=== PATIENT | female | born 1970 | race Caucasian/White ===

== ENCOUNTER 2017-04-29 20:10 | Emergency (ER) | payer MEDICAID, OTHER ==
[~2017-04-29] VITALS: Ht 157.5 cm; Wt 45.5 kg
[~2017-04-29 20:10] MED LIST: CEPH-443 PO; IBUP-1542 PO; IBUP400T22 PO
[2017-04-29 21:08] VITALS: Ht 157.5 cm; Wt 45.5 kg
--- NOTE | 2017-04-29 21:18 | ERD ---
ER Documentation Chief Complaint Date/Time DATE: 04/29/17 TIME: 21:15 Chief Complaint PT WITH C/O "I WAS ON MY WAY TO [facility] AND I PASSED OUT. I HAD A SEIZURE" HPI Patient is a 47-year-old female who presents with epileptic seizure while walking home from [facility]. She states that she awoke on the ground surrounded by paramedics. She states that she hit the back of her head on the ground. She denies headache, states that she has only mild pain to the right occipital scalp. She denies vomiting. She denies tongue laceration or incontinence. Patient has a long history of epilepsy and takes phenobarbital and Keppra. She states that she is compliant with her medication. She denies focal weakness, numbness, vertigo, confusion. She denies neck pain. The patient states that her last seizure was 2 weeks ago. She states that her seizures frequently occur when she is having increased stress. ROS All systems reviewed and are negative except as per history of present illness. Medications Home Meds Active Scripts Phenobarbital* (Phenobarbital*) 100 Mg Tab, 97.2 MG PO BID, #60 TAB Prov:ALLY COURTNEY MD 04/29/17 Levetiracetam* (Keppra*) 500 Mg Tablet, 500 MG PO BID, #60 TAB Prov:ALLY COURTNEY MD 04/29/17 Ibuprofen* (Ibuprofen*) 600 Mg Tablet, 600 MG PO Q6H Y for PAIN, #20 TAB Prov:TAM LANDERS MD 09/24/16 Reported Medications Phenobarbital* (Phenobarbital*) Unknown Strength Tablet, 97.2 MG PO BID, TAB 04/29/17 Levetiracetam* (Levetiracetam*) 500 Mg/5 Ml Solution, 500 MG PO BID, ML 04/29/17 Discontinued Scripts Ibuprofen* (Motrin*) 400 Mg Tab, 400 MG PO Q6, #30 TAB Prov:MIKE ALEXANDER PA-C 05/04/16 Cephalexin* (Keflex*) 500 Mg Capsule, 500 MG PO QID for 7 Days, CAP Prov:MIKE ALEXANDER PA-C 05/04/16 Allergies Allergies: Coded Allergies: Penicillins (Unverified Allergy, Intermediate, RASH, 04/29/17) PMhx/Soc Past medical history: Epilepsy Past surgical history: Denies Social history: Denies tobacco, alcohol or illicit drugs. History of Surgery: No Anesthesia Reaction: No Hx Neurological Disorder: Yes (SZ) Hx Respiratory Disorders: No Hx Cardiac Disorders: No Hx Psychiatric Problems: No Hx Miscellaneous Medical Probl: No Hx Alcohol Use: No Hx Substance Use: No Hx Tobacco Use: No FmHx Family History: No coronary disease, No diabetes Physical Exam Vitals Vital Signs Date Time Temp Pulse Resp B/P Pulse Ox O2 Delivery O2 Flow Rate FiO2 04/29/17 23:22 51 16 106/72 99 Room Air 04/29/17 21:20 98.0 53 16 127/72 100 Room Air 04/29/17 21:08 98.0 49 14 127/72 100 Physical Exam Const: Alert, no acute distress Head: Atraumatic, skin intact Eyes: Normal Conjunctiva, no pallor, no icterus. Pupils equal, round and reactive ENT: Normal External Ears, Nose and Mouth. Moist mucous membranes Neck: Full range of motion. No midline tenderness. No meningismus. Resp: Clear to auscultation bilaterally, no wheezes, no rales Cardio: Regular rate and rhythm, no murmurs Abd: Soft, non tender, non distended. Skin: No petechiae or rashes Back: No midline or flank tenderness Ext: No cyanosis, or edema Neur: Awake and alert, cranial nerves II through XII intact bilaterally, strength and sensation full in 4 extremities Psych: Normal Mood and Affect Procedures/MDM MDM: Patient is a 47-year-old female who presents after having an epileptic seizure. The patient states she is compliant with her medications. I spoke with the lab, and they state that phenobarbital level is a send out test, so I will defer testing her level. The patient is back to baseline, and has no current complaints. She is nexus negative, and has no signs of significant head injury. She is not on blood thinners. She stable for discharge with return precautions if she develops headache or vomiting. The patient does not drive a car. I provided the patient with new prescriptions for her medications due to her reporting that she is close to running out of medications. I have advised her to take her medications as prescribed, and to call her neurologist tomorrow to arrange for close follow-up. Departure Diagnosis: Primary Impression: Epileptic seizure Epilepsy type: other generalized Intractability: not intractable Status epilepticus: without status epilepticus Qualified Code: G40.409 - Other generalized epilepsy, not intractable, without status epilepticus Condition: ALLY Jaffe MD Apr 29, 2017 21:17
[2017-04-29 21:20] VITALS: TEMP 98
[2017-04-29] MEDS ORDERED: PHEN64.8 PO (22:57)
[2017-04-29] MEDS ORDERED: LEVE500S8 PO (22:57)
[2017-04-29 23:22] VITALS: BP 106/72; PULSE 51; RESP 16
[2017-04-29] MEDS ORDERED: LEVE-5 PO (23:43)
[2017-04-29] MEDS ORDERED: PHE100 PO (23:43)
== END 2017-04-29 23:20 | disposition home or self-care (01) ==
LOC: E/R 20:10
DX: G40.409 Other generalized epilepsy and epileptic syndromes, not intractable, without status epilepticus (principal)
CPT/HCPCS: 99283

== ENCOUNTER 2017-07-17 13:20 | Emergency (ER) | END 2017-07-17 18:48 | disposition home or self-care (01) | DX: G40.909 Epilepsy, unspecified, not intractable, without status epilepticus (principal); S00.93XA Contusion of unspecified part of head, initial encounter; W18.39XA Other fall on same level, initial encounter; Y92.9 Unspecified place or not applicable | CPT/HCPCS: 70450; 80184; 82962; Z7502 ==